=== PATIENT | female | born 1935 | race Caucasian/White ===

== ENCOUNTER 2016-12-16 19:00 | Emergency (ER) | payer MEDICARE, BC ==
[~2016-12-16] VITALS: Ht 152.4 cm; Wt 71.7 kg
[~2016-12-16 19:00] MED LIST: ASPI81TA31 PO; BENA40TA67 PO; EZET1TAB7 PO; HYDR50TA3 PO; LIDO30AD10 TD; METF-495 PO; METO50TA3 PO; NITR100C2 PO
[2016-12-16 22:32] VITALS: BP 120/65
[2017-01-25] MEDS ORDERED: CLOT30CR24 TOP (12:51)
[2017-01-25] MEDS ORDERED: Metoprolol Tartrate PO (12:51)
[2017-01-25] MEDS ORDERED: MENT71OI TOP (12:51)
[2017-01-25] MEDS ORDERED: BENA20TA2 PO (12:51)
== END 2016-12-16 22:33 | disposition home or self-care (01) ==
LOC: ER 19:00
DX: M48.54XA Collapsed vertebra, not elsewhere classified, thoracic region, initial encounter for fracture (principal); G44.309 Post-traumatic headache, unspecified, not intractable; I65.29 Occlusion and stenosis of unspecified carotid artery; E11.9 Type 2 diabetes mellitus without complications; Z85.3 Personal history of malignant neoplasm of breast; M19.90 Unspecified osteoarthritis, unspecified site; Z88.6 Allergy status to analgesic agent; Z79.82 Long term (current) use of aspirin; Z86.73 Personal history of transient ischemic attack (TIA), and cerebral infarction without residual deficits; W18.09XA Striking against other object with subsequent fall, initial encounter; Y93.89 Activity, other specified; Y99.9 Unspecified external cause status; Y92.9 Unspecified place or not applicable
CPT/HCPCS: 70450; 72125; 72128; 72131; 99284; A4663

== ENCOUNTER 2017-01-24 19:49 | Inpatient (IN) | payer MEDICARE, BC ==
[~2017-01-24] VITALS: Ht 154.9 cm; Wt 72.8 kg
--- NOTE | 2017-01-24 20:00 | NUR ---
PT WALKED INTO ER, STATES SHE TOOK AN UNKNOWN AMOUNT OF LANTUS INSULIN ABOUT 20MINS PRIOR TO ARRIVAL. BLOOD SUGAR UPON ARRIVAL WAS 233. PATIENT ATE SNACK PRIOR TO ARRIVING... PT IS ALERT, ORIENTED X 4, NO RESP DISTRESS NOTED OR REPORTED UPON ASSESSMENT... MD AT BEDSIDE...
[2017-01-24] MEDS ORDERED: IV NORMAL SALINE 1000 ML BAG IV ONE (21:00)
--- NOTE | 2017-01-24 21:05 | NUR ---
pt requesting to be admitted for hypoglycemia, as pt is concerned about how low her blood sugar will drop... pt is alert, oriented x 4, no resp distress noted or reported upon assessment.. aware...
[2017-01-24 21:10] LABS: BASOPHILS % (AUTO) 0.5 % (0.0-2.0); EOSINOPHILS # (AUTO) 0.4 K/uL (0.0-0.7); EOSINOPHILS % (AUTO) 4.3 % (0.0-7.0); HEMATOCRIT 37.3 % (37-47); HEMOGLOBIN 12.9 G/DL (12.0-16.0); LYMPHOCYTES # (AUTO) 2.9 K/uL (20.0-40.0); LYMPHOCYTES % (AUTO) 32.2 % (20.5-51.5); MEAN CORPUSCULAR HEMOGLOBIN 31.7 UUG (27.0-31.0); MEAN CORPUSCULAR HGB CONC 35 g/dL (32.0-37.0); MEAN CORPUSCULAR VOLUME 91.5 FL (81.0-99.0); MONOCYTES # (AUTO) 0.8 K/uL (2.0-10.0); MONOCYTES % (AUTO) 9.4 % (0.0-11.0); NEUTROPHILS # (AUTO) 4.8 K/uL (1.8-8.9); NEUTROPHILS % (AUTO) 53.6 % (38.5-71.5); PLATELET COUNT (AUTO) 284 K/UL (150-450); RED BLOOD CELL COUNT(AUTO) 4.08 MIL/UL (4.2-5.4); RED CELL DISTRIBUTION WIDTH 13.9 % (11.5-14.5); WHITE BLOOD COUNT (AUTO) 8.9 K/UL (4.0-11.2)
[2017-01-24] MEDS ORDERED: AMLO2.5T PO (21:17)
[2017-01-24] MEDS ORDERED: [UNRECOGNIZED DRUG - CODE] IN (21:17)
[2017-01-24] MEDS ORDERED: GLUC1VIA4 IJ (21:17)
[2017-01-24] MEDS ORDERED: IPRA42SP NS (21:17)
[2017-01-24] MEDS ORDERED: BIOT1TAB PO (21:17)
[2017-01-24] MEDS ORDERED: INSU100V7 SQ (21:17)
[2017-01-24] MEDS ORDERED: FLUC150T PO (21:17)
[2017-01-24] MEDS ORDERED: HYDR453.3 TP (21:17)
[2017-01-24] MEDS ORDERED: ACET-73 PO (21:17)
[2017-01-24 21:18] LABS: CALCIUM 9.5 mg/dL (8.5-10.1); CREATININE 0.8 mg/dL (0.6-1.3); POTASSIUM 3.8 mmol/L (3.5-5.1)
[2017-01-24 21:25] LABS: ALBUMIN 3.4 g/dL (3.4-5.0); BILIRUBIN,DIRECT 0.1 mg/dL (0.0-0.2); BILIRUBIN,TOTAL 0.3 mg/dL (0.2-1.0); TOTAL PROTEIN, SERUM 6.7 g/dL (6.4-8.2)
[2017-01-24 21:44] LABS: *BILIRUBIN,URIN NEGATIVE (NEGATIVE); *BLOOD, URINE NEGATIVE (NEGATIVE); *CLARITY,URINE CLEAR (CLEAR); *KETONES,URINE NEGATIVE (NEGATIVE); *PROTEIN,URINE NEGATIVE (NEGATIVE); *UROBILINOGEN,URINE 0.2 E.U./dl (NORMAL); LEUKOCYTE ESTERASE ,URINE 1+ (NEGATIVE); NITRITE, URINE NEGATIVE (NEGATIVE); PH,URINE 6.5 (5.0-8.0); UGLUCOSE TRACE (NEGATIVE)
[2017-01-24 22:02] LABS: *COLOR,URINE LIGHT YELLOW (YELLOW)
[2017-01-24 22:03] LABS: RBC,URINE 0-3 /HPF (0-3); SQUAMOUS EPITHELIAL CELL,UR FEW /HPF (NONE SEEN)
--- NOTE | 2017-01-24 22:32 | NUR ---
Pt. admitted to telemetry , under care of Dr. Soto, Belongs List completed, pt is alert, oriented x 4, daughter at the bedside, pt transferred via gurney...
--- NOTE | 2017-01-24 22:35 | NUR ---
Received pt from ER bib staff via, pt is accompanied by daughter. Pt is a/ox4, in no acute distress. no c/o pain. No s/s of hypo/hyperglycemia noted/reported. Placed in room #217, made comfortable. MD Ahmadi in room with patient, pt and family requesting to check bg, was 233 in ER, per MD love to check blood glucose within an hour as per pt request. Pt self catheterizes. Assisted to bathroom. Call light within reach. Safety measures in place. will continue to monitor.
[2017-01-24 22:40] VITALS: BP 161/75
[2017-01-24] MEDS ORDERED: CEFTRIAXONE 1 G in IV DEXTROSE 5% 50 ML IV SCH (23:15)
[2017-01-24] MEDS ORDERED: hydrALAZINE HCL 25 MG TABLET PO PRN (23:15)
[2017-01-24] MEDS ORDERED: INSULIN REGULAR, HUMAN 300 UNIT/3 ML VIAL SQ PRN (23:15)
[2017-01-24] MEDS ORDERED: DEXTROSE 50% 50 ML DISP.SYRIN IV PRN (23:15)
--- NOTE | 2017-01-24 23:46 | NUR ---
Pt bg is 188 at this time, md made aware as per doctor request. Admitting orders received, noted and carried out. Pt on tele, sinus rhythm on the monitor. will continue monitoring.
[2017-01-25] VITALS: BP 152/71
[2017-01-25] MEDS ORDERED: IBUPROFEN 400 MG TABLET PO PRN
[2017-01-25] MEDS ORDERED: ONDANSETRON 4 MG/2 ML VIAL IV PRN
[2017-01-25] MEDS ORDERED: ACETAMINOPHEN 325 MG TABLET PO PRN
[2017-01-25] MEDS ORDERED: MAGNESIUM HYDROXIDE 30 ML LIQUID UDC PO PRN
[2017-01-25] MEDS ORDERED: REPA0.5T4 PO (00:55)
[2017-01-25] MEDS ORDERED: REPAGLINIDE 0.5 MG TABLET PO SCH (01:00)
[2017-01-25] MEDS ORDERED: CEFTRIAXONE 1 G VIAL ONE (01:18)
[2017-01-25] MEDS: BLOOD SUGAR DIAGNOSTIC 1 EACH STRIP VI SCH ×6 (01:30→11:30)
[2017-01-25 04:00] VITALS: BP 134/66
--- NOTE | 2017-01-25 04:21 | NUR ---
PT IN BED, RESTING WELL. NO ACUTE DISTRESS. NO S/S OF HYPO/HYPERGLYCEMIA NOTED. CONTINUES ON BLOOD GLUCOSE MONITORING Q2H.
[2017-01-25] MEDS ORDERED: PANTOPRAZOLE SODIUM 40 MG TABLET.DR PO SCH (07:00)
[2017-01-25 07:15] LABS: THYROID STIMULATING HORMONE 1.909 mIU/mL (0.358-3.740)
[2017-01-25 07:16] LABS: BASOPHILS % (AUTO) 0.4 % (0.0-2.0); EOSINOPHILS # (AUTO) 0.3 K/uL (0.0-0.7); EOSINOPHILS % (AUTO) 4.3 % (0.0-7.0); HEMATOCRIT 33.2 % (37-47); HEMOGLOBIN 11.6 G/DL (12.0-16.0); LYMPHOCYTES # (AUTO) 2.7 K/uL (20.0-40.0); LYMPHOCYTES % (AUTO) 35.7 % (20.5-51.5); MEAN CORPUSCULAR HEMOGLOBIN 31.9 UUG (27.0-31.0); MEAN CORPUSCULAR HGB CONC 35 g/dL (32.0-37.0); MONOCYTES # (AUTO) 0.7 K/uL (2.0-10.0); MONOCYTES % (AUTO) 9.5 % (0.0-11.0); NEUTROPHILS % (AUTO) 50.1 % (38.5-71.5); PLATELET COUNT (AUTO) 263 K/UL (150-450); RED BLOOD CELL COUNT(AUTO) 3.65 MIL/UL (4.2-5.4); RED CELL DISTRIBUTION WIDTH 13.5 % (11.5-14.5); WHITE BLOOD COUNT (AUTO) 7.7 K/UL (4.0-11.2)
[2017-01-25 07:24] LABS: ALBUMIN 3.1 g/dL (3.4-5.0); BILIRUBIN,TOTAL 0.3 mg/dL (0.2-1.0); CALCIUM 9.3 mg/dL (8.5-10.1); CREATININE 0.7 mg/dL (0.6-1.3); MAGNESIUM 1.7 mg/dL (1.8-2.4); PHOSPHOROUS 3.1 mg/dL (2.5-4.9); POTASSIUM 3.8 mmol/L (3.5-5.1); TOTAL PROTEIN, SERUM 6.2 g/dL (6.4-8.2)
[2017-01-25] MEDS ORDERED: IOHEXOL 300MG/ML 100 ML INFUS..BTL ONE (08:28)
[2017-01-25] MEDS ORDERED: IV NORMAL SALINE 250 ML IV ONE (08:28)
--- NOTE | 2017-01-25 08:30 | NUR ---
awake alert with multiple request from pt and daughter, pt to have CT Chest- breakfast held at this time, agreed to have it done after talking to her, denies of pain, Tele SR 70's, explained plan of care-verbalized understanding, educated on s/s of hypoglycemia, safety measures maintained, call lite within reach, instructed to always call for assistance if with lightheadedness, dizziness- verbalized understanding
[2017-01-25] MEDS ORDERED: METOPROLOL TARTRATE 50 MG TABLET PO SCH ×2 (09:00→17:00)
[2017-01-25] MEDS ORDERED: ASPIRIN 81 MG TAB.CHEW PO SCH (09:00)
[2017-01-25] MEDS ORDERED: AMLODIPINE 2.5 MG TABLET PO SCH (09:00)
--- NOTE | 2017-01-25 09:00 | NUR ---
accucheck to Dr Quang danielle to be done ac/hs instead of q 2h
[2017-01-25] MEDS ORDERED: MAGNESIUM OXIDE 400 MG TABLET PO ONE (09:15)
[2017-01-25] MEDS ORDERED: BENAZEPRIL HCL 20 MG TABLET PO SCH (10:15)
[2017-01-25] MEDS ORDERED: METOPROLOL TARTRATE 25 MG TABLET PO ONE (10:45)
--- NOTE | 2017-01-25 11:51 | NUR ---
BS 304- asked pt if she wants to be covered with regular insulin- states "to wait for BS to go down, am concerned since i had an overdose of Lantus"
[2017-01-25 12:00] VITALS: BP 142/69
[2017-01-25] MEDS ORDERED: INSULIN REGULAR, HUMAN 300 UNIT/3 ML VIAL SQ PRN (12:00)
[2017-01-25] MEDS ORDERED: DEXTROSE 50% 50 ML DISP.SYRIN IV PRN (12:00)
[2017-01-25] MEDS ORDERED: INSULIN REGULAR, HUMAN 300 UNIT/3 ML VIAL SQ ONE (12:15)
[2017-01-25] MEDS ORDERED: CLOTRIMAZOLE 1% CREAM 30 GM TUBE TOP SCH ×2 (12:45→12:49)
[2017-01-25] MEDS ORDERED: Z GUARD REMEDY PASTE 57 GM TUBE TOP SCH ×2 (12:45→21:00)
--- NOTE | 2017-01-25 12:45 | NUR ---
Seen by Dr Dumont- for discharge
--- NOTE | 2017-01-25 12:45 | NUR ---
WOUND CARE CONSULT: PT PRESENTS AMBULATORY WITH RED RASH TO ABDOMINAL AND GROIN FOLDS. RECOMMENDATIONS MADE FOR SKIN PROTECTION. DISCUSSED WITH NURSING STAFF. IN AGREEMENT WITH PLAN OF CARE. Addendum: 01/25/17 at 1247 by JANNET RIVERA RN Amended: Links added.
[2017-01-25] MEDS ORDERED: Metoprolol Tartrate PO (12:51)
[2017-01-25] MEDS ORDERED: BENA20TA2 PO (12:51)
[2017-01-25] MEDS ORDERED: CLOT30CR24 TOP (12:51)
[2017-01-25] MEDS ORDERED: MENT71OI TOP (12:51)
--- NOTE | 2017-01-25 13:50 | NUR ---
discharge instructions given- verbalized understanding, refused to have medications instructions- states "i take those at home and i have gotten instructions from my own pharmacist" daughters at bedside
--- NOTE | 2017-01-25 14:00 | NUR ---
saline lock removed- no swelling/redness noted on site, escorted to car per w/c in stable condition under daughters care, all belongings width her
[2017-01-25] MEDS ORDERED: BLOOD SUGAR DIAGNOSTIC 1 EACH STRIP VI SCH (16:30)
[2017-01-25] MEDS ORDERED: CEFTRIAXONE 1 G in IV DEXTROSE 5% 50 ML IV SCH (21:00)
== END 2017-01-25 14:00 | disposition home health service (06) | DRG 918 ==
LOC: ER 19:49 → TELE 22:03 → MED 01-25 08:59
PROVIDERS: ADMIT Internal Medicine; ATTEND Internal Medicine
DX: T38.3X1A Poisoning by insulin and oral hypoglycemic [antidiabetic] drugs, accidental (unintentional), initial encounter (principal); K86.2 Cyst of pancreas; N39.0 Urinary tract infection, site not specified; J84.9 Interstitial pulmonary disease, unspecified; E11.65 Type 2 diabetes mellitus with hyperglycemia; Z86.73 Personal history of transient ischemic attack (TIA), and cerebral infarction without residual deficits; M54.12 Radiculopathy, cervical region; M19.90 Unspecified osteoarthritis, unspecified site; B36.9 Superficial mycosis, unspecified; D64.9 Anemia, unspecified; E83.42 Hypomagnesemia; N28.1 Cyst of kidney, acquired; K59.00 Constipation, unspecified; N31.9 Neuromuscular dysfunction of bladder, unspecified; Z79.899 Other long term (current) drug therapy; Z85.3 Personal history of malignant neoplasm of breast; Z96.643 Presence of artificial hip joint, bilateral; Y92.009 Unspecified place in unspecified non-institutional (private) residence as the place of occurrence of the external cause; R33.9 Retention of urine, unspecified; I10 Essential (primary) hypertension; R91.1 Solitary pulmonary nodule; K76.89 Other specified diseases of liver; M19.019 Primary osteoarthritis, unspecified shoulder; M75.02 Adhesive capsulitis of left shoulder; I27.2 Other secondary pulmonary hypertension; G89.29 Other chronic pain
CPT/HCPCS: 36415; 71010; 71260; 83690; 83735; 84100; 84443; 85025; 87086; 93005; A4663; J0696; J1815; J7030; J7050; J7060; Q9967

== ENCOUNTER 2017-05-12 17:17 | Inpatient (IN) | payer MEDICARE, BC ==
[~2017-05-12] VITALS: Ht 154.9 cm; Wt 74.4 kg
[~2017-05-12 17:17] MED LIST changes: +ACET-73 PO; +AMLO2.5T PO; +BENA20TA2 PO; -BENA40TA67 PO; +BIOT1TAB PO; +BLOO-374 IN; +CLOT30CR24 TOP; +EZET1TAB31 PO; -EZET1TAB7 PO; +FLUC150T PO; +GLUC1VIA4 IJ; +HYDR453.3 TP; -HYDR50TA3 PO; +INSU100V7 SQ; +IPRA42SP NS; +MENT71OI TOP; -METO50TA3 PO; +Metoprolol Tartrate PO; -NITR100C2 PO; +REPA0.5T4 PO
[2017-05-12] MEDS ORDERED: CLONIDINE HCL 0.1 MG TABLET PO ONE (17:45)
--- NOTE | 2017-05-12 18:00 | NUR ---
PT IS IN ROOM #1B. DR HENDRICKSON EVALUATED THE PT.
[2017-05-12] MEDS ORDERED: CLONIDINE HCL 0.1 MG TABLET ONE (18:12)
[2017-05-12 18:32] LABS: BASOPHILS % (AUTO) 0.4 % (0.0-2.0); EOSINOPHILS # (AUTO) 0.2 K/uL (0.0-0.7); EOSINOPHILS % (AUTO) 1.4 % (0.0-7.0); HEMATOCRIT 37.8 % (37-47); HEMOGLOBIN 12.7 G/DL (12.0-16.0); LYMPHOCYTES # (AUTO) 1.9 K/UL (0.8-4.8); LYMPHOCYTES % (AUTO) 17.3 % (20.5-51.5); MEAN CORPUSCULAR HEMOGLOBIN 29.9 UUG (27.0-31.0); MEAN CORPUSCULAR HGB CONC 34 g/dL (32.0-37.0); MEAN CORPUSCULAR VOLUME 89.1 FL (81.0-99.0); MONOCYTES # (AUTO) 0.9 K/UL (0.1-1.30); MONOCYTES % (AUTO) 8.6 % (0.0-11.0); NEUTROPHILS % (AUTO) 72.3 % (38.5-71.5); PLATELET COUNT (AUTO) 286 K/UL (150-450); RED BLOOD CELL COUNT(AUTO) 4.24 MIL/UL (4.2-5.4)
[2017-05-12 18:50] LABS: *BILIRUBIN,URIN NEGATIVE (NEGATIVE); *BLOOD, URINE NEGATIVE (NEGATIVE); *CLARITY,URINE CLEAR (CLEAR); *COLOR,URINE YELLOW (YELLOW); *KETONES,URINE NEGATIVE (NEGATIVE); *PROTEIN,URINE NEGATIVE (NEGATIVE); *UROBILINOGEN,URINE 0.2 E.U./dl (NORMAL); ALANINE AMINOTRANSFERASE 22 U/L (14-59); ALKALINE PHOSPHATASE 76 U/L (50-136); ASPARTATE AMINOTRANSFERASE 23 U/L (15-37); BILIRUBIN,DIRECT 0.1 mg/dL (0.0-0.2); BILIRUBIN,TOTAL 0.4 mg/dL (0.2-1.0); CARBON DIOXIDE 23 mmol/L (21-32); CHLORIDE 96 mmol/L (98-107); CREATININE 0.9 mg/dL (0.6-1.3); GLUCOSE 92 mg/dL (74-106); LEUKOCYTE ESTERASE ,URINE NEGATIVE (NEGATIVE); NITRITE, URINE NEGATIVE (NEGATIVE); TOTAL PROTEIN, SERUM 8.2 g/dL (6.4-8.2); UGLUCOSE NEGATIVE (NEGATIVE); UREA NITROGEN, BLOOD 13 mg/dL (7-18)
[2017-05-12 19:05] LABS: BACTERIA,URINE NONE SEEN /HPF (NONE SEEN); RBC,URINE 0-3 /HPF (0-3); SQUAMOUS EPITHELIAL CELL,UR FEW /HPF (NONE SEEN); WBC,URINE 0-3 /HPF (0-3)
[2017-05-12] MEDS ORDERED: IV NORMAL SALINE 500 ML BAG IV ONE (19:15)
--- NOTE | 2017-05-12 19:15 | NUR ---
Paged [facility] for admission. Waiting for Jay Russell DNP to call back
[2017-05-12] MEDS ORDERED: BENA40TA67 PO (20:30)
[2017-05-12] MEDS ORDERED: NITR-84 PO (20:30)
[2017-05-12] MEDS ORDERED: DOCU100C36 PO (20:30)
[2017-05-12] MEDS ORDERED: METO-304 PO (20:30)
[2017-05-12] MEDS ORDERED: NYST60PO TP (20:30)
--- NOTE | 2017-05-12 20:30 | NUR ---
Pt. admitted to TELE 216 , under care of MADISON MANUEL DNP Belongs List completed.
--- NOTE | 2017-05-12 20:32 | NUR ---
REPORT CALLED TO JOSE DAVID LOMBARDO
--- NOTE | 2017-05-12 20:47 | NUR ---
PATIENT TRANSPORTED VIA GURNEY BY SHARON GUERRERO LVN. PATIENT IN NO ACUTE DISTRESS.
--- NOTE | 2017-05-12 21:00 | NUR ---
PATIENT ADMITTED IN TELE UNIT UNDER THE CARE OF DR. MADISON MANUEL, NOTIFIED DR. MANUEL FOR ADMISSION ORDERS. BELONGINGS LIST DONE AND PATIENT STATED THE ALL HER MEDS AND VALUABLES WILL BE TOOL ADJUSTER BY HER DAUGHTER.
[2017-05-12 21:10] VITALS: BP 154/75
--- NOTE | 2017-05-12 21:45 | NUR ---
PATIENT LACTIC ACID RESULTS FROM 3.[address] MADISON MANUEL NOTIFIED, WITH NO NEW ORDER, CONT TO MONITOR.
--- NOTE | 2017-05-13 00:08 | NUR ---
PATIENT COMPLAINING OF NUMBNESS ON BOTH HANDS, AND COMPLAINING OF CHEST PAIN, RAPID RESPONSE WAS CALLED, NURSING ROUGHER HELPER CAME NOTIFY MADISON MANUEL WITH MULTIPLE STAT ORDERS, PATIENT AWAKE VERBALLY RESPONSIVE, SKIN WARM AND DRY, GIVEN OXYGEN, OXYGEN SAT 98%AT 2LITERS NC, BLOOD SUGAR 131, B/P175/73, EKG STAT RESULTS NORMAL SINUS RYTHM. DAUGHTER AT BEDSIDE, CONT TO MONITOR.
--- NOTE | 2017-05-13 00:10 | NUR ---
PATIENT APPEARS TO HAVE SEVERE ANXIETY, THE PATIENT HYPERVENTILATING, RN MAINTENANCE CONTROLLER TEACHES THE PATIENT NOT TO HYPERVENTILATE BECAUSE IT CAN CAUSE NUMBNESS AND TINGLING OF THE EXTREMETY, PATIENT OXYGEN SAT 98 TO 99% AT 2LITERS NC, CONT TO MONITOR.
[2017-05-13 00:50] VITALS: BP 172/83
[2017-05-13] MEDS ORDERED: NYSTATIN POWDER 15 GM BOTTLE TP PRN (01:15)
[2017-05-13] MEDS ORDERED: NITROGLYCERIN 0.3 MG/TAB BOTTLE SL PRN (01:15)
[2017-05-13] MEDS ORDERED: ONDANSETRON 4 MG/2 ML VIAL IV PRN (01:15)
[2017-05-13] MEDS ORDERED: ACETAMINOPHEN 325 MG TABLET PO PRN (01:15)
[2017-05-13] MEDS ORDERED: MORPHINE SULFATE 2 MG/1 ML DISP.SYRIN IV PRN ×2 (01:15→02:30)
[2017-05-13] MEDS ORDERED: IV NS 1000 ML 1,000 ML IV PRN (01:15)
[2017-05-13] MEDS ORDERED: ENOXAPARIN SODIUM 40 MG/0.4 ML DISP.SYRIN SQ SCH (01:15)
[2017-05-13] MEDS ORDERED: ALPRAZOLAM 0.5 MG TABLET PO PRN (01:15)
[2017-05-13] MEDS ORDERED: IPRATROPIUM BROMIDE NASAL 15 ML BOTTLE 42 MCG/SPRAY NS PRN (01:15)
[2017-05-13] MEDS ORDERED: NITROGLYCERIN 0.4 MG/TAB BOTTLE SL PRN (02:00)
[2017-05-13] MEDS ORDERED: ENOXAPARIN SODIUM 40 MG/0.4 ML DISP.SYRIN SQ ONE (02:03)
[2017-05-13] MEDS ORDERED: NITROGLYCERIN 0.4 MG/TAB BOTTLE SL ONE (02:04)
[2017-05-13] MEDS ORDERED: MORPHINE SULFATE 2 MG/1 ML DISP.SYRIN ONE (02:34)
[2017-05-13 02:39] VITALS: BP 135/65
--- NOTE | 2017-05-13 03:00 | NUR ---
PATIENT AWAKE, VERBALLY RESPONSIVE, NO FURTHER COMPLAIN OF CHEST PAIN, NO FURTHER COMPLAIN OF NUMBNESS OF FINGERS/HAND, PUPIL EQUALLY REACTED TO LIGHT, NO HEADACHES NOTED, NO S/S OF WEAKNESS ON UPPER EXTREMETY. CONT TO MONITOR.
--- NOTE | 2017-05-13 04:33 | NUR ---
PATIENT SELF CATHETERIZED SELF AT HOME DUE NEUROGENIC BLADDER, DID STRAIGHT CATH WITH 700CC YELLOW COLOR URINE, TOLERATE WELL.
[2017-05-13 05:17] VITALS: BP 155/62
[2017-05-13] MEDS ORDERED: DEXTROSE 50% 50 ML DISP.SYRIN IV PRN (05:30)
[2017-05-13] MEDS: BLOOD SUGAR DIAGNOSTIC 1 EACH STRIP VI SCH ×4 (06:15→21:09)
--- NOTE | 2017-05-13 07:03 | NUR ---
PATIENT SLEPT AFTER RELIEF OF PAIN, RESPIRATION EVEN AND UNLABORED, CONT ON OXYGEN 2LITERS NC, OXYGEN SAT, WNL, NO FURTHER COMPLAIN OF CHEST PAIN, NO FURTHER COMPLAIN OF NUMBNESS OF HANDS AND FINGERS, NO S/S OF HYPO/HYPERGLYCEMIA NOTED,CONT TO MONITOR. ENDORSED TO NEXT SHIFT
--- NOTE | 2017-05-13 07:30 | NUR ---
BLOOD SUGAR IS 145 WHICH CALLS FOR INSULIN COVERAGE BUT PATIENT REFUSED AND STATED THAT SHE DOES NOT TAKE REGULAR INSULIN.SHE IS ALERT AND ORIENTED AT THIS TIME DENIES PAIN OR DISCOMFORTS PATIENT STATED THAT SHE DOES OWN SELF CATH AND REQUESTED FOR ME TO ASSIST HER SO I STRAIGHT CATH HER AND OBTAINED 800 ML OF CLEAR YELLOW URINE AND PATIENT HAS JUST BEEN TO THE BATHROOM AND VOIDED ABOUT 10 MINUTES PRIOR.DAUGHTER IS AT HER BEDSIDE AT THIS TIME.
--- NOTE | 2017-05-13 07:40 | NUR ---
PATIENT RYTHM IS SINUS RYTHM 75. ENDORSED TO NEXT SHIFT.
[2017-05-13] MEDS: PANTOPRAZOLE SODIUM 40 MG TABLET.DR PO SCH (08:28)
[2017-05-13] MEDS: AMLODIPINE 5 MG TABLET PO SCH ×2 (08:44→20:57)
[2017-05-13] MEDS: DOCUSATE SODIUM 100 MG CAPSULE PO SCH (08:44)
[2017-05-13] MEDS: ASPIRIN 81 MG TAB.CHEW PO SCH (08:44)
[2017-05-13] MEDS: BENAZEPRIL HCL 20 MG TABLET PO SCH (08:45)
[2017-05-13] MEDS: METOPROLOL SUCCINATE XL 50 MG TAB.SR.24H PO SCH ×2 (08:45→20:58)
[2017-05-13] MEDS: ENOXAPARIN SODIUM 40 MG/0.4 ML DISP.SYRIN SQ SCH (08:50)
[2017-05-13] MEDS: Z GUARD REMEDY PASTE 57 GM TUBE TOP SCH ×2 (08:55→21:08)
--- NOTE | 2017-05-13 10:30 | NUR ---
IV SITE INFILTERATED REINSERTED TO HER RIGHT FOREARM WITH NUMBER 20 ANGIO WITH ONE ATTEMPT AND CONTINUE WITH IVF ORDERED.
[2017-05-13 11:48] VITALS: BP 119/55
[2017-05-13] MEDS: INSULIN REGULAR, HUMAN 300 UNIT/3 ML VIAL SQ PRN ×2 (12:04→16:21)
[2017-05-13] MEDS: LIDOCAINE 5% PATCH TD SCH (12:06)
--- NOTE | 2017-05-13 14:15 | NUR ---
PATIENT WAS SEEN BY DR LULY GARCIA WITH NO NEW ORDERS AT THIS TIME.
[2017-05-13 15:52] VITALS: BP 125/55
--- NOTE | 2017-05-13 17:46 | NUR ---
ASSISTED PATIENT WITH AMBULATION WITH THE FRONT WHEEL WALKER STAND BYE ASSIST ALL AROUND THE STATION AND SHE TOLERATED WELL BACK TO HER ROOM AND SEATED ON THE CHAIR FOR DINNER.NOT IN DISTRESS DENIES CHEST PAIN.
--- NOTE | 2017-05-13 19:30 | NUR ---
RECEIVED PATIENT LAYING IN BED. NO ACUTE DISTRESS NOTED. DAUGHTER AT BEDSIDE. SAFETY INITIATED. CALL LIGHT WITHIN REACH. TELE SR. WILL REVIEW MEDS AND ORDERS, WILL GIVE MEDS ORDERED. WILL CONTINUE TO MONITOR.
[2017-05-13 20:54] VITALS: BP 140/58
[2017-05-13] MEDS ORDERED: EZETIMIBE 10 MG TABLET PO SCH (21:00)
[2017-05-13] MEDS ORDERED: INSULIN GLARGINE,HUM 300 UNITS/3 ML CARTRIDGE SQ SCH ×2 (21:00)
[2017-05-13] MEDS ORDERED: ATORVASTATIN 40 MG TABLET PO SCH (21:00)
[2017-05-13] MEDS ORDERED: INSULIN DETEMIR 300 UNIT/3 ML CARTRIDGE SQ SCH (21:00)
--- NOTE | 2017-05-13 21:00 | NUR ---
PATIENT REFUSED LEVEMIR. BS AT 129. PATIENT IS CONCERN "I DONT WANT THE LEVEMIR INJECTION, MY BLOOD SUGAR MIGHT DROP. CHECK MY BLOOD SUGAR AT 0200".
[2017-05-14 00:26] VITALS: BP 127/60
[2017-05-14 04:00] VITALS: BP 128/84
[2017-05-14] MEDS: PANTOPRAZOLE SODIUM 40 MG TABLET.DR PO SCH (06:34)
[2017-05-14] MEDS: BLOOD SUGAR DIAGNOSTIC 1 EACH STRIP VI SCH (06:34)
--- NOTE | 2017-05-14 06:43 | NUR ---
NO CHANGES T/O SHIFT. ALL NEEDS MET. NO ACUTE DISTRESS NOTED. DAUGHTER AT BEDISDE. COMFORT AND SAFETY MAINTAINED T/O SHIFT. TELE SR. ALL NEEDS MET. PATIENT REQUEST TO REMOVE IV. "I DONT WANT THIS IV IN. PLEASE TAKE IT OFF". I EXPLAINED THE IMPORTANCE OF KEEPING THE IV ON BUT INSISTED TO HAVE IT REMOVED. IV REMOVED REQUESTED.
[2017-05-14] MEDS: INSULIN REGULAR, HUMAN 300 UNIT/3 ML VIAL SQ PRN (08:13)
[2017-05-14] MEDS: DOCUSATE SODIUM 100 MG CAPSULE PO SCH (08:18)
[2017-05-14] MEDS: ASPIRIN 81 MG TAB.CHEW PO SCH (08:19)
[2017-05-14] MEDS: METOPROLOL SUCCINATE XL 50 MG TAB.SR.24H PO SCH (08:21)
[2017-05-14] MEDS: LIDOCAINE 5% PATCH TD SCH (08:21)
[2017-05-14] MEDS: BENAZEPRIL HCL 20 MG TABLET PO SCH (08:21)
[2017-05-14] MEDS: AMLODIPINE 5 MG TABLET PO SCH (08:22)
[2017-05-14] MEDS: Z GUARD REMEDY PASTE 57 GM TUBE TOP SCH (08:30)
--- NOTE | 2017-05-14 08:30 | NUR ---
RECEIVED PATIENT IN HER BED AWAKE ALERT AND ORIENTED AWARE THAT SHE IS GOING HOME TODAY AND WE ARE WAITING FOR THE DOCTOR TO WRITE AN ORDER TO DISCHARGE PATIENT TODAY AND SHE EXPRESSED UNDERSTANDING.
[2017-05-14] MEDS: ENOXAPARIN SODIUM 40 MG/0.4 ML DISP.SYRIN SQ SCH (08:31)
--- NOTE | 2017-05-14 09:41 | NUR ---
DR HILL HERE AND SEEN PATIENT SPOKE WITH PATIENT AND HER DAUGHTER JUDI AT LENGTH THEN WITH ORDER TO DISCHARGE THE PATIENT HOME TODAY PATIENT STATED THAT SHE HAS AN APPOINTMENT TO SEE HER ONCOLOGIST FOR LEFT BREAST MASTECTOMY TODAY AT 1130.
--- NOTE | 2017-05-14 10:20 | NUR ---
PATIENT DISCHARGED PICKED UP BY HER DAUGHTER JUDI IN SATISFACTORY CONDITION WITH DISCHARGE INSTRUCTIONS AND ALL OF HER PERSONAL BELONGINGS AND PATIENT INSTRUCTED TO FOLLOW UP WITH HER PRIMARY PHYSICIAN AND SHE EXPRESSED UNDERSTANDING.
--- NOTE | 2017-05-14 11:00 | NUR ---
PATIENT ASSISTED WITH SHOWERING AND PREPARING TO BE DISCHARGED. Addendum: 05/14/17 at 1146 by ABDULAZIZ RAE RN WRONG TIMMIMG IT SHOULD BE AT 1000 NOT 1100
[2017-05-14 11:38] VITALS: BP 101/65
== END 2017-05-14 10:18 | disposition home or self-care (01) | DRG 641 ==
LOC: ER 17:17 → TELE 20:40 → MED 05-14 09:09
PROVIDERS: ADMIT Nurse Practitioner Acute Care; ATTEND Nurse Practitioner Acute Care
DX: E87.2 Acidosis (principal); E86.0 Dehydration; J84.9 Interstitial pulmonary disease, unspecified; C50.912 Malignant neoplasm of unspecified site of left female breast; K86.2 Cyst of pancreas; E11.65 Type 2 diabetes mellitus with hyperglycemia; E11.620 Type 2 diabetes mellitus with diabetic dermatitis; E83.52 Hypercalcemia; I27.2 Other secondary pulmonary hypertension; R07.9 Chest pain, unspecified; T38.3X5A Adverse effect of insulin and oral hypoglycemic [antidiabetic] drugs, initial encounter; B36.9 Superficial mycosis, unspecified; E11.649 Type 2 diabetes mellitus with hypoglycemia without coma; E87.1 Hypo-osmolality and hyponatremia; Z86.73 Personal history of transient ischemic attack (TIA), and cerebral infarction without residual deficits; Z92.21 Personal history of antineoplastic chemotherapy; Z92.3 Personal history of irradiation; Z79.4 Long term (current) use of insulin; Z79.84 Long term (current) use of oral hypoglycemic drugs; Y92.009 Unspecified place in unspecified non-institutional (private) residence as the place of occurrence of the external cause; I45.10 Unspecified right bundle-branch block; G89.29 Other chronic pain; M48.00 Spinal stenosis, site unspecified; N31.9 Neuromuscular dysfunction of bladder, unspecified; Z96.643 Presence of artificial hip joint, bilateral; E04.1 Nontoxic single thyroid nodule; Z90.710 Acquired absence of both cervix and uterus; Z85.3 Personal history of malignant neoplasm of breast; Z79.82 Long term (current) use of aspirin; M81.0 Age-related osteoporosis without current pathological fracture; M54.12 Radiculopathy, cervical region; K59.00 Constipation, unspecified; R33.9 Retention of urine, unspecified; R00.2 Palpitations; I10 Essential (primary) hypertension
CPT/HCPCS: 36415; 70030-TC; 71010; 83605; 83690; 84443; 85025; 85730; 87040; 87086; 93005; 93307; A4663; C1758; J1650; J1815; J2270; J7030; J7040

== ENCOUNTER 2018-08-18 17:18 | Inpatient (IN) | payer MEDICARE, BC ==
[~2018-08-18] VITALS: Ht 152.4 cm; Wt 74.8 kg
[~2018-08-18 17:18] MED LIST changes: -AMLO2.5T PO; -BENA20TA2 PO; +BENA40TA67 PO; -CLOT30CR24 TOP; +DOCU100C36 PO; -HYDR453.3 TP; +METO-357 PO; -Metoprolol Tartrate PO; +NITR-84 PO; +NYST60PO TP; -REPA0.5T4 PO
--- NOTE | 2018-08-18 17:22 | NUR ---
PT UNABLE TO RECALL MEDICATION LIST AT THIS TIME.
--- NOTE | 2018-08-18 17:28 | NUR ---
VZ=[id number]
[2018-08-18] MEDS ORDERED: SULF1TAB48 PO (18:47)
[2018-08-18] MEDS ORDERED: LEVO500T2 PO (18:47)
[2018-08-18] MEDS ORDERED: ACETAMINOPHEN ES 500 MG TABLET PO ONE (19:15)
--- NOTE | 2018-08-18 19:15 | NUR ---
Received report from day shift RN
[2018-08-18] MEDS ORDERED: ACETAMINOPHEN ES 500 MG TABLET ONE (19:19)
--- NOTE | 2018-08-18 19:21 | NUR ---
C-SPINE PRECAUTION OBSERVED - C-COLLAR PLACED. PT REFUSES PO MEDICATION.
--- NOTE | 2018-08-18 19:22 | NUR ---
CUSTOMER EXPERIENCE ASSOCIATE AT BEDSIDE.
[2018-08-18] MEDS ORDERED: MORPHINE SULFATE 2 MG/1 ML DISP.SYRIN ONE ×2 (19:27→23:02)
[2018-08-18] MEDS ORDERED: ONDANSETRON 4 MG/2 ML VIAL ONE (19:27)
[2018-08-18] MEDS ORDERED: MORPHINE SULFATE 2 MG/1 ML DISP.SYRIN IM ONE (19:30)
[2018-08-18] MEDS ORDERED: ONDANSETRON 4 MG/2 ML VIAL IM ONE (19:30)
--- NOTE | 2018-08-18 19:37 | NUR ---
animal tech here for transport to CT
--- NOTE | 2018-08-18 19:58 | NUR ---
PT BACK FROM CT SCAN.
[2018-08-18] MEDS ORDERED: IV D5 1/2 NS 1000 ML 1,000 ML IV ONE (20:45)
[2018-08-18 21:35] LABS: BASOPHILS % (AUTO) 0.3 % (0.0-2.0); EOSINOPHILS # (AUTO) 0.1 K/uL (0.0-0.7); EOSINOPHILS % (AUTO) 1.9 % (0.0-7.0); HEMATOCRIT 38.1 % (31.2-41.9); HEMOGLOBIN 13.2 g/dL (10.9-14.3); LYMPHOCYTES # (AUTO) 2.9 K/uL (20.0-40.0); LYMPHOCYTES % (AUTO) 37.7 % (20.5-51.5); MEAN CORPUSCULAR HGB CONC 35 g/dL (32.3-35.6); MEAN CORPUSCULAR VOLUME 95.4 fL (75.5-95.3); MONOCYTES # (AUTO) 0.7 K/uL (2.0-10.0); MONOCYTES % (AUTO) 9.3 % (0.0-11.0); NEUTROPHILS # (AUTO) 3.9 K/uL (1.8-8.9); NEUTROPHILS % (AUTO) 50.8 % (38.5-71.5); PLATELET COUNT (AUTO) 258 K/uL (179-408); WHITE BLOOD COUNT (AUTO) 7.8 K/uL (3.8-11.8)
--- NOTE | 2018-08-18 21:40 | NUR ---
Straight cath removed - 1500cc returned
--- NOTE | 2018-08-18 21:40 | NUR ---
Requested for [facility] - notified Assistant Teacher Primary Felecia
[2018-08-18 21:49] LABS: CARBON DIOXIDE 25 mmol/L (21-32); CHLORIDE 102 mmol/L (98-107); CREATININE 0.8 mg/dL (0.6-1.3); GLUCOSE 129 mg/dL (74-106); POTASSIUM 4.4 mmol/L (3.5-5.1); UREA NITROGEN, BLOOD 11 mg/dL (7-18)
[2018-08-18 21:54] LABS: ALANINE AMINOTRANSFERASE 22 U/L (14-59); ALKALINE PHOSPHATASE 74 U/L (50-136); ASPARTATE AMINOTRANSFERASE 15 U/L (15-37); BILIRUBIN,DIRECT 0.1 mg/dL (0.0-0.2); BILIRUBIN,TOTAL 0.3 mg/dL (0.2-1.0); TOTAL PROTEIN, SERUM 7.2 g/dL (6.4-8.2)
[2018-08-18] MEDS ORDERED: ASPIRIN 81 MG TAB.CHEW PO SCH (23:00)
[2018-08-18] MEDS ORDERED: MAGNESIUM HYDROXIDE 30 ML LIQUID UDC PO PRN (23:00)
[2018-08-18] MEDS ORDERED: ACETAMINOPHEN 325 MG TABLET PO PRN (23:00)
[2018-08-18] MEDS ORDERED: Z GUARD REMEDY PASTE 57 GM TUBE TOP PRN (23:00)
[2018-08-18] MEDS ORDERED: DOCUSATE SODIUM 100 MG CAPSULE PO SCH (23:00)
[2018-08-18] MEDS ORDERED: ONDANSETRON 4 MG/2 ML VIAL IV PRN (23:00)
[2018-08-18] MEDS ORDERED: MORPHINE SULFATE 2 MG/1 ML DISP.SYRIN IV ONE (23:15)
[2018-08-18] MEDS ORDERED: ONDANSETRON 4 MG/2 ML VIAL IV ONE (23:15)
--- NOTE | 2018-08-18 23:36 | NUR ---
REPORT GIVEN TO JOSE DAVID MUSTAFA. APt. admitted to TELE 212, under care of Dr. GONZALEZ. Belongs List completed
[2018-08-18 23:40] VITALS: BP 143/60
--- NOTE | 2018-08-18 23:40 | NUR ---
IN FROM ER VIA GURNEY, ADMITTED 82 YEAR OLD FEMALE WITH DX OF S/P FALL WITH NECK INJURY, AAOX4, NO SIGNS OF ACUTE DISTRESS NOTED AT THIS TIME. WITH CERVICAL COLLAR ON AND L ARM SLING. TELE MONITOR APPLIED SHOW SINUS RHYTHM WITH HR OF 76. FLOOR STEWARD/STEWARDESS AT BEDSIDE. BELONGING LIST DONE, WALLET PURSE AND PHONE BROUGHT HOME BY FLOOR STEWARD/STEWARDESS. PATIENT NOTED TO HAVE 89% O2 SATURATION ON ROOM AIR, SUPPLEMENTAL O2 VIA NC 2LPM, GIVEN, TOLERATING WELL. IV SITE ON RAC, PATENT AND INTACT. ROUTINE ADMISSION DONE. RESIDENTIAL ASSESSMENT DONE. PLAN OF CARE INITIATED. BELONGING LIST DONE. SEEN AND EXAMINED BY DR GONZALEZ. PER PATIENT, SHE EMPTIES HER BLADDER Q4HR VIA STRAIGHT CATHETER SINCE SHE HAS HX OF NEUROGENIC BLADDER. MD MADE AWARE AND ORDER RECEIVED TO CONTINUE PATIENT ROUTINE OF BLADDER EMPTYING Q4HR VIA STRAIGHT CATH. SAFETY MEASURES INITIATED, PLACED BED ON LOW AND LOCKED POSITION [facility] 2 SIDE RAILS UP. BED ALRM ON. PT BELONGINGS AND CALL PRETTY WITHIN REACH.
[2018-08-19] MEDS ORDERED: DOCUSATE SODIUM 100 MG CAPSULE PO ONE (01:15)
[2018-08-19] MEDS: ASPIRIN 81 MG TAB.CHEW PO ONE ×3 (01:47→03:23)
--- NOTE | 2018-08-19 02:40 | NUR ---
PATIENT REQUESTING TO RECEIVE HOME MEDICATIONS SCHEDULED FOR PM. EXPLAINED TO PATIENT THAT HOME MED LIST HAD BEEN RECONCILED AND NOTIFIED PATIENT ON STANDING ORDERS. PATIENT INSISTING TO HAVE HER NIGHT TIME DOSE OF HOME MEDICATION (LANTUS, METROPOLOL, AMLODIPINE, SIMVASTATIN AND METFORMIN) DESPITE EXPLAINING RISK OF TAKING AT THIS TIME AND MAY INTERFERE WITH THE STANDING ORDER AND VITAL SIGNS AT THE AM. CHARGE NURSE NOTIFIED. MD CAR ATTENDANT/DR PAIZ PAGED AND NOTIFIED ABOUT PATIENT'S REQUEST. ORDER RECEIVED OF WILMAN MILLER. PATIENT NOTIFIED ON DOCTOR'S RECOMMENDATIONS AND VERBALIZED UNDERSTANDING. PATIENT REQUESTED TO HAVE BLOOD SUGAR CHECK, ACCU CHECK SHOWS 153MG/DL.
[2018-08-19 03:18] VITALS: BP 145/58
[2018-08-19 06:26] LABS: BASOPHILS % (AUTO) 0.3 % (0.0-2.0); EOSINOPHILS # (AUTO) 0.2 K/uL (0.0-0.7); EOSINOPHILS % (AUTO) 2.6 % (0.0-7.0); HEMATOCRIT 34.1 % (31.2-41.9); HEMOGLOBIN 11.7 g/dL (10.9-14.3); LYMPHOCYTES # (AUTO) 2.2 K/uL (20.0-40.0); LYMPHOCYTES % (AUTO) 33.3 % (20.5-51.5); MEAN CORPUSCULAR HEMOGLOBIN 32.8 uug (24.7-32.8); MEAN CORPUSCULAR HGB CONC 34 g/dL (32.3-35.6); MEAN CORPUSCULAR VOLUME 95.4 fL (75.5-95.3); MONOCYTES # (AUTO) 0.7 K/uL (2.0-10.0); MONOCYTES % (AUTO) 10.4 % (0.0-11.0); NEUTROPHILS # (AUTO) 3.5 K/uL (1.8-8.9); NEUTROPHILS % (AUTO) 53.4 % (38.5-71.5); PLATELET COUNT (AUTO) 228 K/uL (179-408); RED BLOOD CELL COUNT(AUTO) 3.57 MIL/uL (3.63-4.92); WHITE BLOOD COUNT (AUTO) 6.6 K/uL (3.8-11.8)
[2018-08-19 06:53] LABS: ALANINE AMINOTRANSFERASE 19 U/L (14-59); ALKALINE PHOSPHATASE 65 U/L (50-136); ASPARTATE AMINOTRANSFERASE 20 U/L (15-37); BILIRUBIN,TOTAL 0.4 mg/dL (0.2-1.0); CARBON DIOXIDE 28 mmol/L (21-32); CHLORIDE 102 mmol/L (98-107); CHOLESTEROL 125 mg/dL (<200); CREATININE 0.8 mg/dL (0.6-1.3); GLUCOSE 153 mg/dL (74-106); HDL CHOLESTEROL 47 mg/dL (40-60); MAGNESIUM 1.7 mg/dL (1.8-2.4); POTASSIUM 4.3 mmol/L (3.5-5.1); TOTAL PROTEIN, SERUM 6.1 g/dL (6.4-8.2); TRIGLYCERIDES 130 MG/DL (30-150); UREA NITROGEN, BLOOD 10 mg/dL (7-18)
--- NOTE | 2018-08-19 07:00 | NUR ---
PT ON BED, AAOX4, NO SIGNS OF ACUTE DISTRESS NOTED AT THIS MADISON. TELE MONITOR SHOWS SINUS RHYTHM WITH HR OF 63. IV SITE ON RAC, PATENT AND INTACT. WITH CERVICAL COLLAR AND L ARM SLING IN PLACE. KEPT PATIENT SAFE ANC COMFORTABLE AT ALL TIMES. CALL PRETTY WITHIN REACH.
[2018-08-19] MEDS: BLOOD SUGAR DIAGNOSTIC 1 EACH STRIP VI SCH ×6 (07:01→20:21)
--- NOTE | 2018-08-19 07:08 | NUR ---
TEXTED DR. MARTINI FOR MRI APPROVAL.
[2018-08-19] MEDS ORDERED: GADODIAMIDE 2.5 MMOL/5 ML VIAL ONE (07:52)
[2018-08-19] MEDS ORDERED: GADODIAMIDE 5 MMOL/10 ML VIAL ONE (07:52)
--- NOTE | 2018-08-19 08:00 | NUR ---
AWAKE ALERT AND ORIENTED X3 NO SS OF DISTRESS BUT SLIGHT PAIN LEFT UPPER BACK 11/30. SCHMITT CATH INSERTED PER PATIENT REQUEST/BLADER RETENTION
[2018-08-19] MEDS: DOCUSATE SODIUM 100 MG CAPSULE PO SCH (08:41)
[2018-08-19] MEDS: ASPIRIN 81 MG TAB.CHEW PO SCH (08:41)
[2018-08-19] MEDS ORDERED: METOPROLOL SUCCINATE XL 50 MG TAB.SR.24H PO SCH (09:00)
[2018-08-19] MEDS ORDERED: LISINOPRIL 20 MG TABLET PO SCH (09:00)
[2018-08-19] MEDS ORDERED: METFORMIN XR 500 MG TAB.SR.24H PO ONE (09:15)
[2018-08-19] MEDS ORDERED: METOPROLOL SUCCINATE XL 25 MG TAB.SR.24H PO ONE (09:30)
[2018-08-19] MEDS: LIDOCAINE 5% PATCH TD SCH (09:57)
--- NOTE | 2018-08-19 11:02 | NUR ---
to [facility] for mri c spine via ambulance
--- NOTE | 2018-08-19 11:30 | NUR ---
bs for 1130 not done patient to [facility] for mri
--- NOTE | 2018-08-19 14:11 | NUR ---
back from mri stable awake and no ss of pain or distress
[2018-08-19] MEDS: MAGNESIUM SULFATE/D5W 100 ML IV SCH ×2 (14:20→15:28)
[2018-08-19 15:56] VITALS: BP 150/63
--- NOTE | 2018-08-19 16:12 | NUR ---
RESULTS OF MRI IN NOTED BY HOSPITALIST. AWAITING NEURO CONSULT
[2018-08-19] MEDS ORDERED: DEXTROSE 50% 50 ML DISP.SYRIN IV PRN (16:45)
[2018-08-19] MEDS: INSULIN REGULAR, HUMAN 300 UNIT/3 ML VIAL SQ PRN (17:15)
--- NOTE | 2018-08-19 19:51 | NUR ---
PATIENT IS AWAKE AAOX3, DENIES PAIN OR ANY DISTRESS ON ASSESSMENT. PATIENT ON TELE WITH SR. SAFETY MEASURES IN PLACE WILL CONTINUE TO MONITOR PATIENT
[2018-08-19 20:00] VITALS: BP 148/59
[2018-08-19] MEDS: HYDROCODONE/APAP 5-325MG TABLET PO PRN (20:06)
[2018-08-20] VITALS: BP 147/60
[2018-08-20 04:00] VITALS: BP 138/59
--- NOTE | 2018-08-20 06:18 | NUR ---
PATIENT SLEPT WELL ON THIS SHIFT, PAIN MEDS GIVEN REQUESTED BY PATIENT. NO C/O PAIN OR ANY DISCOMFORT AT THIS TIME. NO SIGNIFICANT CHANGES IN STATUS AT PRESENT
[2018-08-20] MEDS: BLOOD SUGAR DIAGNOSTIC 1 EACH STRIP VI SCH ×6 (06:36→20:16)
[2018-08-20] MEDS: BACLOFEN 10 MG TABLET PO SCH ×3 (06:51→20:08)
[2018-08-20] MEDS: INSULIN REGULAR, HUMAN 300 UNIT/3 ML VIAL SQ PRN ×3 (07:47→16:45)
--- NOTE | 2018-08-20 08:00 | NUR ---
AWAKE ALERT AND ORIENTED X3 SEEN BY NEURO FOR CONSULT SEE NOTES, OF CERVICAL COLLAR PER MD
[2018-08-20] MEDS: METFORMIN XR 500 MG TAB.SR.24H PO SCH (08:50)
[2018-08-20] MEDS: ASPIRIN 81 MG TAB.CHEW PO SCH (08:53)
[2018-08-20] MEDS: LIDOCAINE 5% PATCH TD SCH (08:53)
[2018-08-20] MEDS: DOCUSATE SODIUM 100 MG CAPSULE PO SCH (08:53)
[2018-08-20] MEDS: BENAZEPRIL HCL 20 MG TABLET PO SCH (08:55)
[2018-08-20] MEDS: METOPROLOL SUCCINATE XL 25 MG TAB.SR.24H PO SCH (08:56)
[2018-08-20 11:40] VITALS: BP 141/56
--- NOTE | 2018-08-20 12:00 | NUR ---
SEEN BY NARCISA LOPEZ NEWS SPECIALIST FOR FOLLOW-UP SEE NOTES
[2018-08-20 15:56] VITALS: BP 161/67
--- NOTE | 2018-08-20 17:33 | NUR ---
AWAITING PLACEMENT FOR POSSIBLE ARU TRANSFER.
--- NOTE | 2018-08-20 19:35 | NUR ---
PATIENT IS ASLEEP, AROUSES EASILY. DENIES PAIN OR ACUTE DISTRESS ON ASSESSMENT. SAFETY MEASURES IN PLACE WILL CONTINUE TO MONITOR PATIENT
[2018-08-20 20:00] VITALS: BP 145/67
--- NOTE | 2018-08-20 21:00 | NUR ---
PATIENT REFUSED SLIDING SCALE INSULIN
--- NOTE | 2018-08-20 22:27 | NUR ---
PATIENT TOLERATING TRANSFUSION WELL, NO S/S OF DISTRESS. WILL CONTINUE TO MONITOR PATIENT Addendum: 08/20/18 at 2229 by DEANDRE TOPETE RN WRONG PATIENT, PLEASE DISREGARD
[2018-08-21] MEDS: HYDROCODONE/APAP 5-325MG TABLET PO PRN ×3 (00:09→18:21)
[2018-08-21 05:00] VITALS: BP 156/64
--- NOTE | 2018-08-21 06:20 | NUR ---
PATIENT SLEPT WELL ON THIS SHIFT, PAIN MEDS GIVEN WITH EFFECT. NO C/O PAIN AT THIS TIME,NO SIGNIFICANT CHANGES IN STATUS
--- NOTE | 2018-08-21 07:30 | NUR ---
Received patient asleep in bed, not in any form of distress eventhough she is not using the oxygen. With IV access at right antecubital area, intact. With smart catheter to urine bag, draining clear yellow urine. Noted for possible discharge today. Patient's daughter at bedside. Per daughter they will schedule patient an appointment with her PCP a week from discharge. Bed in low position, side rails up x 2, call light within reach. Will continue to monitor and facilitate discharge.
--- NOTE | 2018-08-21 09:30 | NUR ---
Noted for discharge, smart catheter removed with tip intact.
[2018-08-21] MEDS: BACLOFEN 10 MG TABLET PO SCH (09:42)
[2018-08-21] MEDS: ASPIRIN 81 MG TAB.CHEW PO SCH (09:43)
[2018-08-21] MEDS: DOCUSATE SODIUM 100 MG CAPSULE PO SCH (09:43)
[2018-08-21] MEDS: BENAZEPRIL HCL 20 MG TABLET PO SCH (09:44)
[2018-08-21] MEDS: LIDOCAINE 5% PATCH TD SCH (09:44)
[2018-08-21] MEDS: METOPROLOL SUCCINATE XL 25 MG TAB.SR.24H PO SCH (09:44)
[2018-08-21] MEDS: METFORMIN XR 500 MG TAB.SR.24H PO SCH (09:45)
[2018-08-21] MEDS: BLOOD SUGAR DIAGNOSTIC 1 EACH STRIP VI SCH ×3 (09:46→17:41)
[2018-08-21] MEDS: INSULIN REGULAR, HUMAN 300 UNIT/3 ML VIAL SQ PRN ×2 (11:33→12:40)
[2018-08-21 11:50] VITALS: BP 135/52
[2018-08-21 15:50] VITALS: BP 132/65
--- NOTE | 2018-08-21 18:30 | NUR ---
Patient discharged today to [facility], report already given to JOSE DAVID Freedman. Patient was taken by ambulance accompanied by daughter to [facility]. ID Band removed before discharge. All paperwork sent with patient.
== END 2018-08-21 18:45 | DRG 914 ==
LOC: ER 17:20 → TELE 23:22 → MED 08-20 20:00
PROVIDERS: ADMIT Internal Medicine; ATTEND Internal Medicine
DX: S19.9XXA Unspecified injury of neck, initial encounter (principal); W10.9XXA Fall (on) (from) unspecified stairs and steps, initial encounter; Y92.019 Unspecified place in single-family (private) house as the place of occurrence of the external cause; Y99.8 Other external cause status; C50.912 Malignant neoplasm of unspecified site of left female breast; Z90.710 Acquired absence of both cervix and uterus; M25.78 Osteophyte, vertebrae; Z92.21 Personal history of antineoplastic chemotherapy; E83.52 Hypercalcemia; E11.9 Type 2 diabetes mellitus without complications; Z79.4 Long term (current) use of insulin; N31.9 Neuromuscular dysfunction of bladder, unspecified; M48.02 Spinal stenosis, cervical region; M24.812 Other specific joint derangements of left shoulder, not elsewhere classified; M11.20 Other chondrocalcinosis, unspecified site; I10 Essential (primary) hypertension; M50.11 Cervical disc disorder with radiculopathy, high cervical region; M19.90 Unspecified osteoarthritis, unspecified site; G89.29 Other chronic pain
CPT/HCPCS: 36415; 70030-TC; 70450; 71045; 72125; 73030; 73110; 83735; 84100; 85025; 85730; 93005; 97112; 97116; 97165; 97530; A4663; A9150; C1758; G0378; J1815; J2270; J2405; J3475; J3490; J7050